=== PATIENT | female | born 1985 | race Hispanic/Latino ===

== ENCOUNTER 2016-12-31 06:47 | Emergency (ER) | payer SELFPAY ==
[2016-12-31 07:30] LABS: Basophils % (Auto) 0.3 % (0.0-1.8); Eosinophils % (Auto) 0.3 % (0.0-4.3); Hematocrit 39.6 % (30.3-42.9); Hemoglobin 12.9 gm/dl (10.1-14.3); Mean Corpuscular HGB Conc 33 % (30-34); Mean Corpuscular Hemoglobin 30 pg (28-32); Mean Corpuscular Volume 90 fl (79-97); Platelet Count 319 K/mm3 (140-440); Red Blood Count 4.39 M/mm3 (3.65-5.03); Red Cell Distribution Width 13.9 % (13.2-15.2); White Blood Count 11.2 K/mm3 (4.5-11.0)
[2016-12-31 07:58] LABS: Alanine Aminotransferase 20 units/L (7-56); Albumin 4.3 g/dL (3.9-5); Albumin/Globulin Ratio 1.4 %; Alkaline Phosphatase 95 units/L (35-129); Anion Gap 20 mmol/L; Blood Urea Nitrogen 11 mg/dL (7-17); Calcium 9.1 mg/dL (8.4-10.2); Carbon Dioxide 21 mmol/L (22-30); Chloride 103.8 mmol/L (98-107); Glucose 118 mg/dL (65-100); Lipase 22 units/L (13-60); Potassium 4.9 mmol/L (3.6-5.0); Sodium 140 mmol/L (137-145); Total Protein 7.3 g/dL (6.3-8.2)
[2016-12-31 09:43] LABS: Bacteria,Urine 1+ /HPF (Negative); Bilirubin,Urine NEG (Negative); Blood,Urine SM (Negative); Ketones,Urine NEG (Negative); Leukocyte Esterase,Urine SM (Negative); Mucus,Urine 2+ /HPF; Nitrite,Urine NEG (Negative); Urobilinogen,Urine < 2.0 mg/dL (<2.0)
[2016-12-31] MEDS ORDERED: NACL 0.9% 1000 ML 1,000 ML IV ONE (11:35)
[2016-12-31] MEDS ORDERED: ZOFRAN IV ONE (11:35)
[2016-12-31] MEDS ORDERED: MORPHINE IV ONE ×2 (11:35→13:23)
--- NOTE | 2016-12-31 11:40 | Emergency Department Report ---
ED Abdominal Pain HPI - General Chief Complaint: Abdominal Pain Stated Complaint: ABD PAIN Time Seen by Provider: 12/31/16 11:27 Source: patient Mode of arrival: Ambulatory Limitations: No Limitations - History of Present Illness Initial Comments: Patient is a pleasant 31-year-old female with no past medical history visiting from [facility] presenting to the ER with abdominal pain. Patient reports she's had epigastric and right upper quadrant abdominal pain since last night. The pain is described as constant, cramping, with no radiation or migration. Associated nausea and vomiting. Otherwise no fevers, chills, chest pain, shortness of breath, lower extremity pain, abd surgery, pelvic pain, vaginal discharge, trauma, or sick contacts. No history of biliary colic in the past. MD Complaint: abdominal pain -: Sudden Location: RUQ, epigastric Radiation: none Migration to: no migration Severity: moderate Quality: cramping Consistency: constant Improves With: nothing Worsens With: nothing Associated Symptoms: nausea, vomiting - Related Data Previous Rx's Medication Instructions Recorded Last Taken Type Dicyclomine [Bentyl] 20 mg PO QID PRN #20 tablet 12/31/16 Unknown Rx HYDROcodone/APAP 5-325 [Crescent 1 each PO Q6HR PRN #12 tablet 12/31/16 Unknown Rx 5/325] Ondansetron [Zofran Odt] 4 mg PO Q8HR PRN #12 tab.rapdis 12/31/16 Unknown Rx Allergies Allergy/AdvReac Type Severity Reaction Status Date / Time No Known Allergies Allergy Unverified 12/31/16 06:55 ED Review of Systems ROS: Stated complaint: ABD PAIN Other details as noted in HPI ED Past Medical Hx - Past Medical History Previous Medical History?: Yes Hx Kidney Stones: Yes Additional medical history: Removal of kidney stone - Social History Smoking Status: Unknown if ever smoked - Medications Home Medications: Home Medications Medication Instructions Recorded Confirmed Last Taken Type Dicyclomine [Bentyl] 20 mg PO QID PRN #20 tablet 12/31/16 Unknown Rx HYDROcodone/APAP 5-325 [Crescent 1 each PO Q6HR PRN #12 tablet 12/31/16 Unknown Rx 5/325] Ondansetron [Zofran Odt] 4 mg PO Q8HR PRN #12 tab.rapdis 12/31/16 Unknown Rx ED Physical Exam - General Limitations: No Limitations General appearance: alert, in no apparent distress - Head Head exam: Present: atraumatic, normocephalic - Eye Eye exam: Present: normal appearance - ENT ENT exam: Present: mucous membranes moist - Neck Neck exam: Present: normal inspection - Respiratory Respiratory exam: Present: normal lung sounds bilaterally. Absent: respiratory distress - Cardiovascular Cardiovascular Exam: Present: regular rate, normal rhythm. Absent: systolic murmur, diastolic murmur, rubs, gallop - GI/Abdominal GI/Abdominal exam: Present: soft, tenderness (Epigastric and RUQ), normal bowel sounds. Absent: distended, guarding, rebound, rigid - Rectal Rectal exam: Present: deferred - Extremities Exam Extremities exam: Present: normal inspection - Back Exam Back exam: Present: normal inspection - Neurological Exam Neurological exam: Present: alert, oriented X3 - Psychiatric Psychiatric exam: Present: normal affect, normal mood - Skin Skin exam: Present: warm, dry, intact, normal color. Absent: rash ED Course Vital Signs 12/31/16 12/31/16 12/31/16 07:01 11:21 11:31 Temperature 98.9 F Pulse Rate 65 59 L Respiratory 16 26 H Rate Blood Pressure 142/89 148/86 148/86 O2 Sat by Pulse 100 99 Oximetry 12/31/16 12/31/16 12/31/16 11:45 12:00 12:04 Temperature Pulse Rate 56 L 59 L Respiratory 24 10 L 18 Rate Blood Pressure 148/86 176/95 O2 Sat by Pulse 98 99 Oximetry ED Medical Decision Making - Lab Data Result diagrams: 12/31/16 07:13 12/31/16 07:13 - Radiology Data RUQ: (+)cholelithiasis without acute cholecystitis - Medical Decision Making Results discussed with patient and her . Discussed lifestyle and diet modifications. Pt to follow up with a surgeon when she return to [place] in a few weeks. Copy of RUQ US given to the patient Critical care attestation.: If time is entered above; I have spent that time in minutes in the direct care of this critically ill patient, excluding procedure time. ED Disposition Clinical Impression: Abdominal pain, Biliary colic Disposition: DISCHARGED TO HOME OR SELFCARE Is pt being admited?: No Condition: Stable Instructions: Abdominal Pain (ED), Biliary Colic (ED) Prescriptions: Dicyclomine [Bentyl] 20 mg PO QID PRN #20 tablet PRN Reason: Pain HYDROcodone/APAP 5-325 [Crescent 5/325] 1 each PO Q6HR PRN #12 tablet PRN Reason: Pain Ondansetron [Zofran Odt] 4 mg PO Q8HR PRN #12 tab.rapdis PRN Reason: Nausea Referrals: PRIMARY CARE,MD [Primary Care Provider] - 3-5 Days
--- NOTE | 2016-12-31 12:58 | Ultrasound Report ---
RIGHT UPPER QUADRANT ABDOMINAL ULTRASOUND: 12/31/16 06:47:00 CLINICAL: Mid-upper abdominal pain with nausea and vomiting. FINDINGS: High-resolution ultrasound demonstrated a mildly enlarged liver with moderate diffuse increased echogenicity consistent with fatty infiltration. No liver mass. Normal hepatic vasculature and inferior vena cava. Some fatty sparing adjacent to the gallbladder. The gallbladder is distended with multiple stones in the gallbladder. The gall bladder wall measures 2.2 mm in thickness. The gallbladder was not tender to the pressure of the probe. Normal intrahepatic and extra hepatic bile ducts. The common bile duct measures 5.7 mm diameter. The pancreas was not optimally imaged because the tail was obscured by bowel gas. The pancreatic head and body are normal. Normal upper abdominal aorta. Mild distention of the right renal collecting system. No renal mass, calculus or cyst. The echogenicity of the right kidney is normal. The right kidney measures 11.2 x 4.9 x 5.2 cm. No ascites or mass. IMPRESSION: 1. Cholelithiasis but no definitive signs of acute cholecystitis. 2. Hepatic steatosis and mild hepatomegaly. 3. Probable physiologic distention of the right renal collecting system.
[2016-12-31 14:42] VITALS: BP 181/107
== END 2016-12-31 14:05 | disposition home or self-care (01) ==
LOC: ED 06:47
DX: K80.50 Calculus of bile duct without cholangitis or cholecystitis without obstruction (principal); R10.30 Lower abdominal pain, unspecified
CPT/HCPCS: 36415; 76705; 80053; 81001; 81025; 83690; 85025; 96361; 96374; 96375; 96376; 99284; J2270; J2405; J7030